=== PATIENT | female | born 2000 | race Caucasian/White ===

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

== ENCOUNTER 2019-12-06 21:19 | Emergency (ER) | payer SELFPAY ==
[~2019-12-06] VITALS: Ht 162.6 cm; Wt 77.1 kg
--- NOTE | 2019-12-06 21:27 | NUR ---
pt ambulated to bed 8. Addendum: 12/06/19 at 2136 by MEDMJ pt ambulated to bed 7.
[2019-12-06 21:30] VITALS: BP 110/75
--- NOTE | 2019-12-06 21:30 | NUR ---
18 YEAR OLD FEMALE COMPLAINS OF SORE THROAT AND HEADACHE SINCE TUESDAY. PATIENT DENIES ANY OTHER COMPLAINS AT THIS TIME. PATIENT LUNGS CTABL, BREATHING EVEN AND LABORED, AOX4, SKIN WARM AND DRY. BED IN LOWEST POSITIION, LOCKED, BED RAIL UPX1. PMH - DENIES ALLERGIES - NKA
--- NOTE | 2019-12-06 21:43 | NUR ---
STREP THROAT CULTURE OBTAINED AND SENT TO LAB
[2019-12-06 22:49] VITALS: BP 110/75
--- NOTE | 2019-12-06 22:49 | NUR ---
Patient discharged with v/s stable. Written and verbal after care instructions given and explained. Patient alert, oriented and verbalized understanding of instructions. Ambulatory with steady gait. All questions addressed prior to discharge. ID band removed. Patient advised to follow up with PMD. Rx of LIDOCAINE AND IBUPROFEN given. Patient educated on indication of medication including possible reaction and side effects. Opportunity to ask questions provided and answered.
== END 2019-12-06 22:49 | disposition home or self-care (01) ==
LOC: MED 21:19
DX: J02.8 Acute pharyngitis due to other specified organisms (principal); B97.89 Other viral agents as the cause of diseases classified elsewhere
CPT/HCPCS: 87081; 99283